=== PATIENT | female | born 1985 | race Caucasian/White ===

== ENCOUNTER 2018-04-19 02:56 | Emergency (ER) | payer BC, OTHER ==
[2018-04-19] MEDS ORDERED: ONDANSETRON HCL INJ/PF 4 MG/2 ML SDV IV ONE (03:15)
[2018-04-19] MEDS ORDERED: NORMAL SALINE 1000 ML 1,000 ML IV ONE (03:15)
[2018-04-19] MEDS ORDERED: KETOROLAC TROMETHAMINE INJ/PF 30 MG/1 ML SDV IV ONE (03:15)
--- NOTE | 2018-04-19 03:18 | ER Document Report ---
ED General - General Chief Complaint: Urinary Problem Stated Complaint: BACK PAIN Time Seen by Provider: 04/19/18 03:15 Notes: 33-year-old female presents with right greater than left flank pain and suprapubic pain. This all began as frequency and urgency 2 weeks ago, for which she took [id number] medications. This improved her son, then she got worse a week ago. She was seen by her urgent care physician who prescribed Cipro after giving her "a shot of the blood" and she got slightly better. She then felt worse in terms of suprapubic pain and pressure, was given Macrobid by her primary care, took this for 2 days. She was then placed back on Cipro at [facility] urgent care. She is does not know of any culture results. The pain has migrated to the right flank and now she has some nausea. Does not feel like past kidney stones. Mild nausea but no anorexia. No vaginal discharge or bleeding other than.. TRAVEL OUTSIDE OF THE [place] IN LAST 30 DAYS: No - Related Data Allergies/Adverse Reactions: hydrocodone bitartrate [From Vicodin] Allergy (Verified 05/28/15 05:45) Severe Itching Past Medical History - Social History Smoking Status: Never Smoker Family History: CAD - Mother with [place] 30 years old - Past Medical History Cardiac Medical History: Denies: Hx Coronary Artery Disease, Hx Heart Attack, Hx Hypertension Pulmonary Medical History: Denies: Hx Asthma, Hx Bronchitis, Hx COPD, Hx Pneumonia Neurological Medical History: Denies: Hx Cerebrovascular Accident, Hx Seizures Musculoskeletal Medical History: Denies Hx Arthritis Past Surgical History: Reports: Hx Cholecystectomy, Hx Gynecologic Surgery - CSECTION x 2, Hx Tonsillectomy - Immunizations Hx Diphtheria, Pertussis, Tetanus Vaccination: Yes Review of Systems - Review of Systems Notes: REVIEW OF SYSTEMS GEN: Denies fever, chills, weight loss ENT: Denies sore throat, nasal discharge, ear pain EYES: Denies blurry vision, eye pain, discharge CV: Denies chest pain, palpitations, edema RESP: Denies cough, shortness of breath, wheezing GI: Lower abdominal pain nausea vomiting MSK: Denies joint pain/swelling, edema, right flank and back pain SKIN: Denies rash, skin lesions LYMPH: Denies swollen glands/lymph nodes NEURO: Denies headache, focal weakness or numbness, dizziness PSYCH: Denies depression, suicidal or homicidal ideation PHYSICAL EXAMINATION General: No acute distress, well-nourished Head: Atraumatic, normocephalic ENT: Mouth normal, oropharynx moist, no exudates or tonsillar enlargement Eyes: Conjunctiva normal, pupils equal, lids normal Neck: No JVD, supple, no guarding CVS: Normal rate, regular rhythm, no murmurs Resp: No resp distress, equal and normal breath sounds bilaterally GI: Nondistended, soft, suprapubic to palpation, no rebound or guarding Ext: No deformities, no edema, normal range of motion in upper and lower ext Back: Right CVA tenderness Skin: No rash, warm Lymphatic: No lymphadeopathy noted Neuro: Awake, alert. Face symmetric. GCS 15. Physical Exam - Vital signs Vitals: Temp Pulse Resp BP Pulse Ox 98.5 F 122 H 18 134/95 H 96 04/19/18 03:03 04/19/18 03:03 04/19/18 03:03 04/19/18 03:03 04/19/18 03:03 Course - Re-evaluation Re-evalutation: 04/19/18 05:44 Signs and symptoms of refractory cystitis versus pyelonephritis, rule out stone. No signs of sepsis currently. Given Toradol and Zofran. Urine is positive for infection but also blood. CT stone was done. This shows tiny bilateral nonobstructing disease. Do not think this is related. Given that she is been on 3 antibiotics and Rocephin only seem to be the one to help her she was given IV Rocephin here and will be discharged with cefixime which can be used for pyelonephritis. Prior urine cultures need to be reviewed and she will check on them. I cannot see in the computer. I sent a urine culture today. She was reassessed at 5:40 AM feeling much better and is stable for discharge home. Did give dose of Diflucan here because she reports yeast infections. I have discussed with the patient there likely diagnosis, aftercare plan, follow-up plans and my usual and customary return precautions. They verbalized understanding of this. - Vital Signs Vital signs: Temp Pulse Resp BP Pulse Ox 98.5 F 122 H 18 134/95 H 96 04/19/18 03:03 04/19/18 03:03 04/19/18 03:03 04/19/18 03:03 04/19/18 03:03 - Laboratory Result Diagrams: 04/19/18 03:32 04/19/18 03:32 Laboratory results interpreted by me: 04/19/18 04/19/18 04/19/18 03:05 03:32 03:32 Plt Count 127 L Sodium 136.7 L Urine Protein 100 H Urine Blood LARGE H Urine Nitrite POSITIVE H Urine Urobilinogen 4.0 H Urine Ascorbic Acid 40 H Discharge - Discharge Clinical Impression: Cystitis with hematuria Clinical Impression: (Ruled Out): Cystitis without hematuria Condition: Good Disposition: HOME, SELF-CARE Instructions: Urinary Tract Infection ([facility]) Additional Instructions: Urine culture has been sent. If there is a problem with the antibiotic we have prescribed he will receive a phone call. Please also call your prior doctors to check on the results if they have sent a culture. Prescriptions: Cefixime [Suprax] 200 mg PO BID #20 tab.chew Phenazopyridine HCl 200 mg PO BID #10 tablet Referrals: BONY ANDERSON PA-C [Primary Care Provider] - Follow up as needed
[2018-04-19 03:52] LABS: ABSOLUTE EOSINOPHILS # (AUTO) 0.1 10^3/uL (0.0-0.6); ABSOLUTE MONOCYTES (AUTO) 0.6 10^3/uL (0.1-1.4); BASOPHILS % (AUTO) 0.7 % (0-2); EOSINOPHILS % (AUTO) 1.5 % (0-6); HEMATOCRIT 42.4 % (36.0-47.0); HEMOGLOBIN 14.5 g/dL (12.0-15.5); LYMPHOCYTES % (AUTO) 35.6 % (13-45); MEAN CORPUSCULAR HEMOGLOBIN 29.6 pg (27.0-33.4); MEAN CORPUSCULAR HGB CONC 34.3 g/dL (32.0-36.0); MEAN CORPUSCULAR VOLUME 86 fl (80-97); MONOCYTES % (AUTO) 10.1 % (3-13); PLATELET COUNT 127 10^3/uL (150-450); RED BLOOD COUNT 4.92 10^6/uL (3.72-5.28); RED CELL DISTRIBUTION WIDTH 12.2 % (11.5-14.0); SEGMENTED NEUTROPHILS % (AUTO) 52.1 % (42-78); TOTAL CELLS COUNTED % (AUTO) 100 %; WHITE BLOOD COUNT 5.7 10^3/uL (4.0-10.5)
[2018-04-19 03:54] LABS: APPEARANCE,URINE TURBID; BILIRUBIN,URINE NEGATIVE (NEGATIVE); COLOR,URINE RED; GLUCOSE, URINE NEGATIVE (NEGATIVE); KETONES,URINE NEGATIVE (NEGATIVE); LEUKOCYTE ESTERASE,URINE NEGATIVE (NEGATIVE); NITRITE,URINE POSITIVE (NEGATIVE); PROTEIN,URINE 100 mg/dL (NEGATIVE); URINE SPECIFIC GRAVITY 1.019
[2018-04-19 04:09] LABS: ANION GAP 11 (5-19); BLOOD UREA NITROGEN 14 mg/dL (7-20); CALCIUM 9.7 mg/dL (8.4-10.2); CARBON DIOXIDE 25 mmol/L (22-30); CHLORIDE 101 mmol/L (98-107); GLUCOSE 90 mg/dL (75-110); POTASSIUM 4.2 mmol/L (3.6-5.0); SODIUM 136.7 mmol/L (137-145)
[2018-04-19] MEDS ORDERED: CEFTRIAXONE 1 GM/D5W RTU 1 GM/50 ML RTUPB IV ONE (05:00)
[2018-04-19] MEDS ORDERED: CEFTRIAXONE INJ 1000 MG VIAL IV ONE (05:06)
--- NOTE | 2018-04-19 05:22 | RADIOLOGY REPORT (SQ) ---
EXAM DESCRIPTION: CT ABDOMEN PELVIS WITHOUT IV CONTRAST COMPLETED DATE/TME: 04/19/2018 04:31 CLINICAL HISTORY: 33 years, Female, flank pain rbc uriune COMPARISON: None. TECHNIQUE: Axial CT images of the abdomen and pelvis were obtained without contrast. Sagittal and coronal reformats were performed. DLP 419 Images stored on PACS. All CT scanners at this facility use dose modulation, iterative reconstruction, and/or weight based dosing when appropriate to reduce radiation dose to as low as reasonably achievable (ALARA). [facility]: Dose Right [facility]: CareDose [facility]: Dose Right [facility]: Teradose 4D [facility]: [employer] LIMITATIONS: None. FINDINGS: Lung bases are clear. Cholecystectomy. The liver, pancreas, spleen, and adrenal glands are unremarkable. There are bilateral nonobstructing stones measuring up to 4 mm on the right and 2 mm on the left. There is no intraperitoneal free air or fluid. There is no lymphadenopathy. The abdominal aorta is normal in caliber. The stomach, small bowel, appendix, and colon appear unremarkable. The uterus, adnexa, and urinary bladder are unremarkable. There are no lytic or blastic bone lesions IMPRESSION: Bilateral nonobstructing nephrolithiasis. TECHNICAL DOCUMENTATION: Quality ID # [id number]: Final reports with documentation of one or more dose reduction techniques (e.g., Automated exposure control, adjustment of the mA and/or kV according to patient size, use of iterative reconstruction technique) 2010 [employer]- All Rights Reserved
[2018-04-19] MEDS ORDERED: FLUCONAZOLE 100 MG TABLET PO ONE (05:24)
[2018-04-19 06:10] VITALS: BP 109/79
== END 2018-04-19 06:10 | disposition home or self-care (01) ==
LOC: ER 02:56
DX: N30.81 Other cystitis with hematuria (principal); R10.2 Pelvic and perineal pain; Z88.6 Allergy status to analgesic agent; Z90.49 Acquired absence of other specified parts of digestive tract
CPT/HCPCS: 99284; 96361; 96375; 96365; 36415; 87086; 85025; 80048; 81001; 74176; J1885; J0696; J2405

== ENCOUNTER 2019-02-28 10:26 | Day surgery (SDC) | payer BC ==
[2019-02-24 11:44] LABS: ABSOLUTE EOSINOPHILS # (AUTO) 0.1 10^3/uL (0.0-0.6); ABSOLUTE MONOCYTES (AUTO) 0.4 10^3/uL (0.1-1.4); ABSOLUTE NEUT (AUTO) 3.3 10^3/uL (1.7-8.2); BASOPHILS % (AUTO) 0.5 % (0-2); EOSINOPHILS % (AUTO) 0.9 % (0-6); HEMATOCRIT 42.8 % (36.0-47.0); HEMOGLOBIN 14.8 g/dL (12.0-15.5); MEAN CORPUSCULAR HEMOGLOBIN 29.4 pg (27.0-33.4); MEAN CORPUSCULAR HGB CONC 34.6 g/dL (32.0-36.0); MEAN CORPUSCULAR VOLUME 85 fl (80-97); MONOCYTES % (AUTO) 7.5 % (3-13); PLATELET COUNT 131 10^3/uL (150-450); RED BLOOD COUNT 5.03 10^6/uL (3.72-5.28); RED CELL DISTRIBUTION WIDTH 12.1 % (11.5-14.0); SEGMENTED NEUTROPHILS % (AUTO) 56.1 % (42-78); TOTAL CELLS COUNTED % (AUTO) 100 %; WHITE BLOOD COUNT 5.8 10^3/uL (4.0-10.5)
[~2019-02-28 10:26] MED LIST: ACETAMINOPHEN 325 MG TABLET PO PRN; CEFAZOLIN SODIUM 2 GM in DEXTROSE 5%-WATER 100 ML IV PRN; DEXAMETHASONE SOD PHOSPHATE INJ 4 MG/1 ML VIAL ONE; FENTANYL CITRATE INJ/PF 100 MCG/2 ML AMPUL ONE; IBUPROFEN 800 MG in NORMAL SALINE 250 ML IV PRN; LACTATED RINGERS 1000 ML IV PRN; LIDOCAINE 0.5% INJ-PF (5 MG/ML) 50 ML SDV SUBCUT PRN; MIDAZOLAM 2 MG/2 ML INJ ONE; ONDANSETRON HCL INJ/PF 4 MG/2 ML SDV ONE; PREGABALIN 50 MG CAPSULE PO PRN; PROPOFOL INJ 200 MG/20 ML VIAL IV ONE; SUCCINYLCHOLINE CHLORIDE INJ 200 MG/10 ML VIAL ONE; SUGAMMADEX SODIUM 200 MG/2 ML SDV IV ONE
[2019-02-28] MEDS ORDERED: ACETAMINOPHEN 325 MG TABLET ONE (10:33)
[2019-02-28] MEDS ORDERED: PREGABALIN 50 MG CAPSULE ONE (10:33)
[2019-02-28] MEDS ORDERED: BUPIVACAINE HCL 0.25 % INJ/PF (2.5 MG/1 ML) 30 ML VIAL ONE (14:04)
[2019-02-28] MEDS ORDERED: BUPIVACAINE HCL 0.25 % INJ/PF (2.5 MG/1 ML) 30 ML VIAL INJ ONE ×2 (14:30)
[2019-02-28] MEDS ORDERED: FENTANYL CITRATE INJ/PF 100 MCG/2 ML AMPUL IV PRN ×2 (14:59)
[2019-02-28] MEDS ORDERED: ONDANSETRON HCL INJ/PF 4 MG/2 ML SDV IV PRN (14:59)
[2019-02-28] MEDS ORDERED: PROMETHAZINE HCL INJ 25 MG/1 ML VIAL IV PRN ×2 (14:59)
[2019-02-28] MEDS ORDERED: DIPHENHYDRAMINE HCL 50 MG/ML VIAL IV PRN (14:59)
[2019-02-28] MEDS ORDERED: MEPERIDINE HCL/PF INJ 25 MG/1 ML DISP.SYRIN IV PRN (14:59)
[2019-02-28] MEDS: FENTANYL CITRATE INJ/PF 100 MCG/2 ML AMPUL IV PRN ×2 (15:11→15:19)
[2019-02-28] MEDS ORDERED: FENTANYL CITRATE INJ/PF 100 MCG/2 ML AMPUL ONE (15:11)
[2019-02-28] MEDS ORDERED: OXYCODONE-ACETAMINOPHEN 5-325 MG TABLET ONE (16:14)
[2019-02-28 17:29] VITALS: BP 127/79
--- NOTE | 2019-03-01 07:27 | Discharge Summary ---
Discharge Summary (SDC) - Discharge Final Diagnosis: suture granuloma of LLQ abdominal wall Date of Surgery: 02/28/19 Discharge Date: 02/28/19 Condition: Stable Forms: ASU Anesthesia D/C Instruction, Discharge POC-Surgical Service Treatment or Instructions: MAY SHOWER IN 48 HOURS. NO TUB BATHS, HOT TUBS,SWIMMING POOLS,FOR TWO WEEKS, WATCH FOR SIGNS OF INFECTION ,REDNESS, FEVER, NO LIFTING/PULIING OVER 10 POUNDS. WALK FREQUENTLY. Referrals: BONY ANDERSON PA-C [Primary Care Provider] - MARION ZACARIAS MD [ACTIVE STAFF] - 03/13/19 11:00 am () Discharge Diet: As Tolerated Respiratory Treatments at Home: Deep Breathing/Coughing, Incentive Spirometer Discharge Activity: Activity As Tolerated, Balance Activity w/Rest, No Lifting Over 10 Pounds, No tub bath, Walk Frequently Home Care Assistance: None Needed Report the Following to Your Physician Immediately: Shortness of Breath, Nausea, Increase in Pain, Fever over 101 Degrees, Unusual Bleeding, IV Site Infection Signs
--- NOTE | 2019-03-01 07:40 | Operative Report ---
Nonrecallable Operative Report DATE OF SURGERY: 02/28/19 PREOPERATIVE DIAGNOSIS: Painful left lower quadrant abdominal wall mass POSTOPERATIVE DIAGNOSIS: Painful left lower quadrant abdominal wall mass, 3 cm, likely suture granuloma OPERATION: 1. Excision of a 3 cm abdominal wall mass, excised from the fascia. 2. Intermediate closure of a 3 cm abdominal incision. SURGEON: MARION ZACARIAS ANESTHESIA: GA TISSUE REMOVED OR ALTERED: 3 cm abdominal wall mass, consisting of suture granuloma, abdominal fat, and a small amount of fascia. COMPLICATIONS: None apparent ESTIMATED BLOOD LOSS: Minimal PROCEDURE: Drains/implants: None. Procedure in detail: After informed consent was obtained, the patient was brought to the operating room and laid in the supine position. The area of the abdomen was prepped and draped in a normal sterile fashion. An incision was created within the bounds of a previous scar. Dissection was carried through the subcutaneous tissue using sharp dissection and electrocautery. The tender nodule was easily identified. It was immediately adjacent to, and intimately associated with the fascia of the left lower quadrant. The nodule was excised in its entirety from the surrounding tissues. A small amount of fascia was removed at the base of the lesion during this maneuver. The mass was measured to be approximately 3 cm. It was passed off the field and sent to pathology. Secondary to the intimate association with the fascia, there was a very small fascial defect in the external oblique aponeurosis. This was closed with Vicryl suture in [id number] fashion. The fascia was then meticulously inspected. There was no evidence of inguinal, incisional, or femoral hernia. Hemostasis was achieved. Next, the subcutaneous tissues were closed using 3-0 Vicryl suture in simple running fashion. The overlying skin was closed using 4- 0 Vicryl Rapide suture in subcuticular fashion. A dressing was placed, and the procedure was concluded. All sponge, instrument, and needle counts were correct x2. Condition: Stable.
== END 2019-02-28 17:34 | disposition home or self-care (01) ==
LOC: OROUT 10:26
PROVIDERS: ATTEND Surgery
DX: N80.6 Endometriosis in cutaneous scar (principal); R19.04 Left lower quadrant abdominal swelling, mass and lump; D69.3 Immune thrombocytopenic purpura; Z87.442 Personal history of urinary calculi; Z79.899 Other long term (current) drug therapy
CPT/HCPCS: 86900; 86901; 36415; 86850; 85025; 81025; 88305 ×2; 22900; J2250; J0690; J1100; J3010; J0330; J2405; J7060; J7050; J2704; J3490; J1741; 800

== ENCOUNTER 2019-05-25 11:26 | Emergency (ER) | payer BC ==
--- NOTE | 2019-05-25 11:38 | ER Document Report ---
ED Medical Screen (RME) - General Chief Complaint: Back Pain Stated Complaint: BACK PAIN Time Seen by Provider: 05/25/19 11:30 Primary Care Provider: BONY ANDERSON PA-C [Primary Care Provider] - Follow up as needed Mode of Arrival: Ambulatory Information source: Patient Notes: 34-year-old female presents to ED for complaint of pain in the mid neck going across the left shoulder across the scapular down the left arm with numbness to the left arm since Sunday morning states she woke up with this pain. She went to the chiropractor Sunday. The chiropractor said that they could adjust her and fix her but she went a couple times and did not get any relief so she did not go any back anymore she went to the urgent care they gave her Toradol antibiotics muscle relaxer and steroids and sent home with a prescription of steroids and she is not getting any better this morning she woke up with a bright red nose that is very painful and swollen glands to her neck. Apical pulse at this time is 140 blood pressure is 127/88. She denies any urinary symptoms. She is afebrile at this time. She states she does take something called Thrive it is supposed to be the equivalent of 1 cup of coffee. Patient denies any chest pain. I have greeted and performed a rapid initial assessment of this patient. A comprehensive ED assessment and evaluation of the patient, analysis of test results and completion of medical decision making process will be conducted by an additional ED providers. TRAVEL OUTSIDE OF THE [place] IN LAST 30 DAYS: No - Related Data Allergies/Adverse Reactions: hydrocodone bitartrate [From Vicodin] Allergy (Verified 05/28/15 05:45) Severe Itching Past Medical History - Past Medical History Cardiac Medical History: Denies: Hx Coronary Artery Disease, Hx Heart Attack, Hx Hypertension Pulmonary Medical History: Denies: Hx Asthma, Hx Bronchitis, Hx COPD, Hx Pneumonia Neurological Medical History: Denies: Hx Cerebrovascular Accident, Hx Seizures Renal/ Medical History: Denies: Hx Peritoneal Dialysis Musculoskeltal Medical History: Denies Hx Arthritis Past Surgical History: Reports: Hx Cholecystectomy, Hx Gynecologic Surgery - CSECTION x 2, Hx Tonsillectomy - Immunizations Hx Diphtheria, Pertussis, Tetanus Vaccination: Yes Doctor's Discharge - Discharge Referrals: BONY ANDERSON PA-C [Primary Care Provider] - Follow up as needed
[2019-05-25] MEDS ORDERED: NORMAL SALINE 1000 ML 1,000 ML IV ONE (11:49)
[2019-05-25 12:31] LABS: ABSOLUTE LYMPHOCYTES (AUTO) 0.9 10^3/uL (0.5-4.7); ABSOLUTE MONOCYTES (AUTO) 0.4 10^3/uL (0.1-1.4); ABSOLUTE NEUT (AUTO) 9.9 10^3/uL (1.7-8.2); BASOPHILS % (AUTO) 0.2 % (0-2); HEMATOCRIT 44.4 % (36.0-47.0); LYMPHOCYTES % (AUTO) 7.7 % (13-45); MEAN CORPUSCULAR HEMOGLOBIN 29.1 pg (27.0-33.4); MEAN CORPUSCULAR HGB CONC 33.8 g/dL (32.0-36.0); MEAN CORPUSCULAR VOLUME 86 fl (80-97); MONOCYTES % (AUTO) 3.7 % (3-13); PLATELET COUNT 154 10^3/uL (150-450); RED BLOOD COUNT 5.16 10^6/uL (3.72-5.28); RED CELL DISTRIBUTION WIDTH 11.7 % (11.5-14.0); SEGMENTED NEUTROPHILS % (AUTO) 88.4 % (42-78); TOTAL CELLS COUNTED % (AUTO) 100 %; WHITE BLOOD COUNT 11.2 10^3/uL (4.0-10.5)
--- NOTE | 2019-05-25 12:32 | RADIOLOGY REPORT (SQ) ---
EXAM DESCRIPTION: CHEST 2 VIEWS COMPLETED DATE/TIME: 05/25/2019 12:12 pm REASON FOR STUDY: tachycardic COMPARISON: 2012 TECHNIQUE: Frontal and lateral radiographic views of the chest acquired. NUMBER OF VIEWS: Two view. LIMITATIONS: None. FINDINGS: LUNGS AND PLEURA: No opacities, masses or pneumothorax. No pleural effusion. MEDIASTINUM AND HILAR STRUCTURES: No masses or contour abnormalities. HEART AND VASCULAR STRUCTURES: Heart normal size. No evidence for failure. BONES: No acute findings. HARDWARE: None in the chest. OTHER: No other significant finding. IMPRESSION: NO SIGNIFICANT RADIOGRAPHIC FINDING IN THE CHEST. TECHNICAL DOCUMENTATION: JOB ID: [id number] [employer]- All Rights Reserved Reading location - IP/workstation name: [email or web address]
--- NOTE | 2019-05-25 12:42 | ER Document Report ---
ED Neck/Back Problem - General Chief Complaint: Back Pain Stated Complaint: BACK PAIN Time Seen by Provider: 05/25/19 11:30 Primary Care Provider: BONY ANDERSON PA-C [Primary Care Provider] - Follow up as needed Mode of Arrival: Ambulatory Notes: Patient is a 34-year-old female who presents emergency department with a chief complaint of neck pain that started 6 days ago. She states the pain is at the base of her neck at her upper back and radiates to the left side of her shoulder. She states that she has on and off numbness and tingling in that arm. She sometimes has a little bit of weakness in the arm. She went to the chiropractor and states that she did not have any relief of her pain. She also went to urgent care 3 days ago and she went to urgent care and she had a dose of steroids, Flexeril, and Toradol, but has had little relief since then. This morning she woke up and her pain was much worse and she ended up having erythema to her nose. She went to urgent care this morning and she was referred to the emergency department for tachycardia. Patient denies any fevers. She admits to some malaise. She did have a sore throat and this morning she had anterior cervical lymphadenopathy. Patient does not remember if she has been vaccinated for meningitis when she was a teenager. Past surgical history includes cholecystectomy. Patient has history of renal stones in the past. Denies any medication use. Patient admits to using Thrive caffeine patches. TRAVEL OUTSIDE OF THE [place] IN LAST 30 DAYS: No - Related Data Allergies/Adverse Reactions: hydrocodone bitartrate [From Vicodin] Allergy (Verified 05/28/15 05:45) Severe Itching Past Medical History - General Information source: Patient - Social History Smoking Status: Never Smoker Frequency of alcohol use: None Drug Abuse: None Family History: CAD - Mother with [place] 30 years old Patient has suicidal ideation: No Patient has homicidal ideation: No - Past Medical History Cardiac Medical History: Denies: Hx Coronary Artery Disease, Hx Heart Attack, Hx Hypertension Pulmonary Medical History: Denies: Hx Asthma, Hx Bronchitis, Hx COPD, Hx Pneumonia Neurological Medical History: Denies: Hx Cerebrovascular Accident, Hx Seizures Renal/ Medical History: Denies: Hx Peritoneal Dialysis Musculoskeletal Medical History: Denies Hx Arthritis Past Surgical History: Reports: Hx Cholecystectomy, Hx Gynecologic Surgery - CSECTION x 2, Hx Tonsillectomy - Immunizations Hx Diphtheria, Pertussis, Tetanus Vaccination: Yes Review of Systems - Review of Systems Notes: REVIEW OF SYSTEMS: CONSTITUTIONAL : Denies recent illness. Denies recent unintentional weight loss. Denies fever, chills, or sweats. EENT: See HPI. Denies nasal or sinus congestion. CARDIOVASCULAR: Denies chest pain. RESPIRATORY: Denies shortness of breath, cough, congestion, difficulty breathing, or wheezing. GASTROINTESTINAL: Denies nausea, vomiting, and diarrhea. Denies abdominal pain. Denies constipation. GENITOURINARY: Denies difficulty urinating, burning, blood in urine, urgency or frequency. MUSCULOSKELETAL: See HPI. Denies joint pain or swelling. SKIN: Denies rash, itchiness, or lesions HEMATOLOGIC : Denies easy bruising or bleeding. LYMPHATIC: Denies swollen, painful, enlarged glands. NEUROLOGICAL: Denies no numbness or tingling denies weakness. Denies headache. Denies altered mental status. Denies alteration in speech. PSYCHIATRIC: Denies stress, anxiety, alteration in sleep patterns, or depression. All other systems reviewed and negative. Physical Exam - Vital signs Vitals: Temp Pulse Resp BP Pulse Ox 98.2 F 136 H 20 127/88 H 98 05/25/19 11:30 05/25/19 11:30 05/25/19 11:30 05/25/19 11:30 05/25/19 11:30 - Notes Notes: PHYSICAL EXAMINATION: GENERAL: Appears well, healthy, well-nourished, no acute distress. HEAD: Normocephalic, atraumatic. EYES: PERRL, conjunctiva normal, all extraocular movements intact, sclera nonicteric ENT: Moist mucous membranes. Erythema noted to nose NECK: Supple, no noticeable swelling, redness, rash. Normal range of motion. LUNGS: Equal breath sounds bilaterally and clear to auscultation. No wheezes rales or rhonchi. CARDIOVASCULAR: S1-S2, regular rate, regular rhythm. Radial pulses 2+, normal. ABDOMEN: Normoactive bowel sounds. Soft, nontender, no guarding, no rebound tenderness, and no masses palpated. EXTREMITIES: Normal strength and range of motion, no pitting or edema. No cyanosis. NEUROLOGICAL: Moves all extremities upon command. Strength 5/5 in all extremities. PSYCH: Normal mood, normal affect. SKIN: Warm, dry. No rash, lesions, ulcerations noted. Normal skin turgor. Course - Re-evaluation Re-evalutation: 05/25/19 13:03 Discussed this case with Dr. Lala and discussed that this presentation does not appear to be meningitis to the patient not having fever. It sounds more like she could possibly have a pinched nerve causing her pain. Her erythema on her nose may be cellulitis. Patient's heart rate has improved with IV fluids. Her heart rate is now 112. 05/25/19 13:41 Patient's heart rate has greatly improved since my previous assessment. Heart rate is now in the high 90s. Patient's hematology shows a slight elevation in her white blood cell count of 11,200. This is most likely due to the cellulitis on her nose. She will be started on Augmentin. Chemistries are unremarkable at this time. Troponin ordered in triage is negative. hCG is negative. Her urinalysis is unremarkable. Rapid strep was also negative. I have advised the patient to follow-up with primary care provider to get physical therapy. Patient states that her pain has improved with Toradol IV. She will receive Toradol to go home with. Patient is also requesting to get Diflucan because she gets yeast infections. She is in agreement with this plan. Follow-up precautions were given. Verbal discharge instructions were given to the patient. They verbalized understanding. They are stable for discharge. - Vital Signs Vital signs: Temp Pulse Resp BP Pulse Ox 98.2 F 136 H 15 121/83 98 05/25/19 11:30 05/25/19 11:30 05/25/19 13:01 05/25/19 13:01 05/25/19 13:01 - Laboratory Result Diagrams: 05/25/19 11:53 05/25/19 11:53 Laboratory results interpreted by me: 05/25/19 11:53 WBC 11.2 H Lymph % (Auto) 7.7 L Absolute Neuts (auto) 9.9 H Seg Neutrophils % 88.4 H - EKG Interpretation by Me Additional EKG results interpreted by me: 05/25/19 12:45 Sinus tachycardia. Rate 121. SD 144; QRS 78; QT 324; QTc 460. No ST elevatio ns or depressions noted. Only change noted is tachycardia from previous EKG done on 05/14/13. Discharge - Discharge Clinical Impression: Tachycardia Cellulitis Qualifiers: Site of cellulitis: face Qualified Code(s): L03.211 - Cellulitis of face Back pain Qualifiers: Back pain location: back pain in unspecified location Chronicity: acute Back pain laterality: midline Qualified Code(s): M54.9 - Dorsalgia, unspecified Condition: Stable Disposition: HOME, SELF-CARE Additional Instructions: You are seen today in the emergency department for redness to your nose. You have cellulitis. You are being started on antibiotics. Please make sure you take your antibiotics as prescribed. Your back pain you have is most likely due to a pinched nerve. I recommend that you take Toradol, the medication that is prescribed to you every 6 hours along with acetaminophen 1000 mg. Follow-up with the primary care provider and see if you can get physical therapy. Your high heart rate today may be due to your caffeine patches that you take. Please cut back on these, because if you have an infection, your heart rate will go up and caffeine also makes your heart rate quite. Please drink plenty of water and get a lot of rest. Prescriptions: Ketorolac Tromethamine [Toradol 10 mg Tablet] 10 mg PO Q6HP PRN #20 tablet PRN Reason: Amox Tr/Potassium Clavulanate [Augmentin 875-125 Tablet] 1 tab PO BID 10 Days #20 tablet Fluconazole [Diflucan] 150 mg PO ASDIR PRN #2 tablet PRN Reason: Referrals: CHRISTEL PHILLIPS FNP [NURSE PRACTITIONER] - Follow up in 3-5 days
[2019-05-25 12:44] LABS: APPEARANCE,URINE SLIGHTLY-CLOUDY; BILIRUBIN,URINE NEGATIVE (NEGATIVE); COLOR,URINE YELLOW; GLUCOSE, URINE NEGATIVE (NEGATIVE); KETONES,URINE NEGATIVE (NEGATIVE); PROTEIN,URINE NEGATIVE (NEGATIVE); URINE SPECIFIC GRAVITY 1.027; UROBILINOGEN,URINE NEGATIVE mg/dL (<2.0)
[2019-05-25 12:50] LABS: ALBUMIN 4.7 g/dL (3.5-5.0); ALKALINE PHOSPHATASE 71 U/L (38-126); ANION GAP 13 (5-19); ASPARTATE AMINO TRANSFERASE 29 U/L (14-36); BILIRUBIN,DIRECT 0.2 mg/dL (0.0-0.4); BILIRUBIN,TOTAL 0.9 mg/dL (0.2-1.3); BLOOD UREA NITROGEN 20 mg/dL (7-20); CALCIUM 9.9 mg/dL (8.4-10.2); CARBON DIOXIDE 24 mmol/L (22-30); CHLORIDE 104 mmol/L (98-107); GLUCOSE 107 mg/dL (75-110); POTASSIUM 4.3 mmol/L (3.6-5.0); TOTAL PROTEIN 7.9 g/dL (6.3-8.2)
--- NOTE | 2019-05-25 13:00 | ER Document Report ---
Doctor's Note Notes: 05/25/19 12:57 Was asked to see this patient in consultation with the physician administration assistant. In summary is a 34-year-old female who states around 1 week ago she awoke with some left-sided neck pain that radiates down her arm. She denies any weakness or numbness of the arm. She denies any trauma. She denies any midline neck pain. She denies any lower extremity symptoms. She went to see a chiropractor and also had a massage. On she went to an urgent care center who gave her Toradol, steroid injection, and a muscle relaxer. She was also provided a prescription and told to start a steroid Dosepak yesterday. She states she woke up this morning with some nasal congestion, a "red nose", and some swollen gl ands. She denies any and all headache. She states mild sore throat. She denies any cough or shortness of breath. She denies any and all chest pain or abdominal discomfort. Heart rate was elevated in triage. On examination patient is sitting up in no acute distress. Patient does have some nasal congestion with a erythematous nose with no tenderness or bogginess to palpation of the sinuses. Minimal posterior erythema with a nonswollen midline uvula with no peritonsillar swelling. Patient has no midline neck cervical tenderness, step-offs, fluctuance, or induration. Patient has some mil d left-sided trapezius tenderness. No swelling or erythema. 5 out of 5 strength bilateral upper and lower extremities with excellent sensation and distal pulses. Heart and lung examination is unremarkable. Heart rate is currently 108. No cardiac murmurs. No palm or sole lesions. No lower extremity edema. Given the above history and physical we will provide fluids and obtain basic labs. I do believe acute bacterial meningitis, PE, or dissection to be extraordinarily unlikely. I do believe that this most likely is musculoskeletal in nature of the left arm and left neck. Patient does not use IV drugs. Afebrile. No weakness or numbness appreciated. Patient does states she takes "thrive" which is a caffeine supplement. Heart rate is currently 108. Patient does have some erythema to the nose. No malar rash. No obvious lesions to the nasal passages. No obvious fluctuance or induration.
[2019-05-25] MEDS ORDERED: KETOROLAC TROMETHAMINE INJ/PF 30 MG/1 ML SDV IV ONE (13:01)
[2019-05-25] MEDS ORDERED: AMOXICILLIN TRIHYD 250 MG CAPSULE PO ONE (13:50)
[2019-05-25 14:02] VITALS: BP 126/70
--- NOTE | 2019-05-25 16:35 | EKG REPORT ---
SEVERITY:- BORDERLINE ECG - SINUS TACHYCARDIA LA ABNORMALITY, LEFT VENTRICULAR HYPERTROPHY : Confirmed by: Elías Gaffney MD 25-May-2019 16:35:25
== END 2019-05-25 14:01 | disposition home or self-care (01) ==
LOC: ER 11:26
DX: L03.211 Cellulitis of face (principal); R00.0 Tachycardia, unspecified; R09.81 Nasal congestion; M54.9 Dorsalgia, unspecified; M54.2 Cervicalgia; Z90.49 Acquired absence of other specified parts of digestive tract; Z88.6 Allergy status to analgesic agent
CPT/HCPCS: 93005; 99284; 96361; 96374; 36415; 87070; 87880; 84703; 85025; 87077; 80053; 81001; 84484; 71046; 93010; J3490; J1885; J7030